=== PATIENT | female | born 1955 | race Hispanic/Latino ===

== ENCOUNTER 2016-08-08 15:55 | Outpatient (CLI) | payer BC ==
--- NOTE | 2016-08-08 16:37 | XRay Report ---
LEFT HIP: The bony architecture is intact without evidence of fracture or dislocation. No significant soft tissue abnormality is seen. IMPRESSION: Normal left hip. Left knee: The lateral projection is somewhat oblique. With this exception the findings appear generally unremarkable with good alignment of the knee joint and preservation of the joint spaces. The articular margins are smooth. The bones are well-mineralized. There is no effusion. Impression: Compromised positioning. No significant findings.
== END 2016-08-08 15:56 | disposition home or self-care (01) ==
LOC: SPVIMAG 15:55
PROVIDERS: ATTEND Internal Medicine
DX: M25.552 Pain in left hip (principal); M25.562 Pain in left knee

== ENCOUNTER 2017-04-14 11:32 | Outpatient (CLI) | payer BC ==
--- NOTE | 2017-04-14 14:46 | Mammography Report ---
BONE DENSITY STUDY: DEFINITIONS: BMD = Bone Mineral Density T-score = BMD related to mean peak bone mass of young adult (mean expressed in Standard Deviation) Z-score = Age matched BMD expressed in SD World Health Organization (WHO) Diagnostic Criteria Normal T-score > -1 SD Osteopenia T-score between -1 and -2.4 SD Osteoporosis T-score -2.5 SD or below FINDINGS: The patient weighs 320 pounds which is above the weight limit for the bone densitometry table. Therefore the wrists were performed. The weighted average BMD of the right wrist is 0.560 with a T-score of -0.1. The weighted average BMD of the left wrist is 0.558 with a T-score of -0.1. IMPRESSION: The patient's T-score is diagnostic for normal bone density and low relative risk for fracture. NOTE: BMD is not the only risk factor for fracture; also consider factors such as the patient's age, risk of falling, previous osteoporotic fracture, family history of osteoporotic fractures, current smoker, and low body weight. Rashid's triangle is a region of interest in femur, predominantly of trabecular bone. It is not a true anatomic site, and [facility] does not recommend its use clinically.
--- NOTE | 2017-04-14 14:50 | Mammography Report ---
BILATERAL MAMMOGRAM with CAD: HISTORY:Cancer screening. FINDINGS: The breasts are almost entirely fat (<25% glandular). No mass, distortion, suspicious calcification, or skin change is seen. IMPRESSION: Negative mammogram. There is no mammographic evidence of malignancy. RECOMMENDATION: Follow-up per ACS guidelines. BI-RADS CATEGORY: 1 = Negative ACR BI-RADS MAMMOGRAPHIC CODES: 0 = Needs additional imaging evaluation; 1 = Negative; 2 = Benign; 3 = Probably benign; 4 = Suspicious; 5 = Malignant; 6 = Known biopsy-proven malignancy COMMENT: 1. Dense breast tissue, i.e., adenosis, fibrocystic changes, etc., may obscure an underlying neoplasm. 2. Approximately 10% of cancers are not detected with mammography. 3. A negative mammography report should not delay biopsy if a clinically suspicious mass is present. COMMENT: Patient follow-up letters are generated in [employer].
== END 2017-04-14 11:33 | disposition home or self-care (01) ==
LOC: SPVWC 11:32
PROVIDERS: ATTEND Internal Medicine
DX: Z12.31 Encounter for screening mammogram for malignant neoplasm of breast (principal); Z78.0 Asymptomatic menopausal state
CPT/HCPCS: 77080; G0202; 77067

== ENCOUNTER 2017-06-01 09:21 | Outpatient (CLI) | payer BC ==
--- NOTE | 2017-06-01 10:43 | Fluoroscopy Report ---
GI series: Persistent cough. Examination of the esophagus demonstrates a large non-reduced hiatus hernia. The esophagus is otherwise unremarkable with normal swallowing mechanism identified under fluoroscopy. Examination of the subdiaphragmatic stomach and duodenum are normal. Free gastroesophageal reflux identified to at least the midesophagus. Impressions: Non-reduced hiatus hernia with significant reflux.
== END 2017-06-01 09:22 | disposition home or self-care (01) ==
LOC: FLUORO 09:21
PROVIDERS: ATTEND Internal Medicine
DX: K21.9 Gastro-esophageal reflux disease without esophagitis (principal); K44.9 Diaphragmatic hernia without obstruction or gangrene; R05 Cough
CPT/HCPCS: 74247